=== PATIENT | male | born 1985 | race Caucasian/White ===

== ENCOUNTER 2024-03-22 10:48 | Emergency (ER) | payer SELFPAY ==
[2024-03-22 11:36] VITALS: BP 138/85; PULSE 79; RESP 14; TEMP 36.6; O2SAT 97; BMI 23.7
--- NOTE | 2024-03-22 12:05 | ED.SKABFB ---
HPI - Skin/Abscess/Foreign Bdy <HESHAM Isaac - Last Filed: 03/22/24 12:25> General Chief complaint: Skin/Abscess/Foreign Body Stated complaint: poss spider bite R arm Time Seen by Provider: 03/22/24 12:05 Source: patient Mode of arrival: Ambulatory Limitations: no limitations History of Present Illness HPI narrative: 38-year-old male, daily smoker, presents to the emergency department with complaints of a bug bite to his right forearm that occurred 2 days ago. [facility] [place] [facility] [place] and [place] been [place] a [place]. Patient reports getting lots of pus out of his arm along with chills and body aches. Patient denies seeing any ticks attached to his body. Related Data Previous Rx's Medication Instructions Recorded cephalexin 500 mg capsule 1,000 mg (2 x 500 mg) PO BID 03/22/24 Cellulitis 10 days #40 caps Allergies Allergy/AdvReac Type Severity Reaction Status Date / Time No Known Drug Allergies Allergy Verified 03/22/24 12:22 Review of Systems <HESHAM Isaac - Last Filed: 03/22/24 12:25> Review of Systems Narrative: Narrative: See HPI. GENERAL: Denies chills, fatigue, fever, sweats. HEENT: Denies sinus pain, ear pain, sore throat, difficulty swallowing, dizziness. RESPIRATORY: Denies dyspnea, cough, wheezing, sputum. CARDIOVASCULAR: Denies chest pain, palpitations, edema. GASTROINTESTINAL: Denies nausea, vomiting, abdominal pain, diarrhea, constipation. : Denies dysuria, frequency, incontinence, hematuria, urinary retention, flank pain. MSK: Denies weakness, joint pain, or bony pain. SKIN: Denies rash or pruritis. Endorses lesion to right forearm. NEUROLOGIC: Denies weakness, dizziness, headache, numbness, confusion. PSYCHIATRIC: No concerning psychosocial issues. Patient History <HESHAM Isaac - Last Filed: 03/22/24 12:25> Social History Smoking Status: Current every day smoker Smoking Status: Current every day smoker alcohol intake frequency: a few times a week Exam <HESHAM Isaac - Last Filed: 03/22/24 12:25> Narrative Exam Narrative: Exam Narrative: GENERAL: This is a well-nourished, well-developed patient, in no acute distress. HEAD: Atraumatic. Normocephalic. EYES: Pupils equal round and reactive. Extraocular motions intact. No scleral icterus, injection or drainage. ENT: Nose without bleeding, purulent drainage. Throat without erythema, tonsillar hypertrophy or exudate. Uvula midline. Airway patent. TMs and canals clear. No sinus tenderness. NECK: Trachea midline. No JVD or lymphadenopathy. Nontender. CARDIOVASCULAR: Regular rate and rhythm without murmurs, peripheral pulses intact, cap refill <2 sec. RESPIRATORY: Breath sounds equal and clear bilaterally. No wheezes, rales, or rhonchi. No cough. No increased respiratory effort. No accessory muscle use. GASTROINTESTINAL: Abdomen soft, non-tender, nondistended without guarding or rebound. No suprapubic pain. MSK: Moves all extremities. Normal range of motion, no clubbing or edema. Neurovascularly intact. NEURO: A&O x 3. SKIN: Warm, dry, no rashes noted. 1 cm erythematous lesion on right forearm consistent with a bug bite. Not consistent with erythema migrans. Initial Vital Signs Initial Vital Signs: Vital Signs Temperature 97.9 F 03/22/24 11:36 Pulse Rate 79 03/22/24 11:36 Respiratory Rate 14 03/22/24 11:36 Blood Pressure 138/85 03/22/24 11:36 Pulse Oximetry 97 03/22/24 11:36 Oxygen Delivery Method Room Air 03/22/24 11:36 Reviewed <Claire Gar DO - Last Filed: 03/31/24 07:49> Initial Vital Signs Initial Vital Signs: Vital Signs Temperature 97.9 F 03/22/24 11:36 Pulse Rate 79 03/22/24 11:36 Respiratory Rate 14 03/22/24 11:36 Blood Pressure 138/85 03/22/24 11:36 Pulse Oximetry 97 03/22/24 11:36 Oxygen Delivery Method Room Air 03/22/24 11:36 Course <HESHAM Isaac - Last Filed: 03/22/24 12:25> Vital Signs Vital signs: Vital Signs - 8 hr 03/22/24 11:36 Temperature 97.9 F Pulse Rate 79 Respiratory Rate 14 Blood Pressure 138/85 Pulse Oximetry 97 Oxygen Delivery Method Room Air <Claire Gar DO - Last Filed: 03/31/24 07:49> Vital Signs Vital signs: Vital Signs - 8 hr 03/22/24 11:36 Temperature 97.9 F Pulse Rate 79 Respiratory Rate 14 Blood Pressure 138/85 Pulse Oximetry 97 Oxygen Delivery Method Room Air MDM - Skin/Abscess/Foreign Bdy <HESHAM Isaac - Last Filed: 03/22/24 12:25> Differential Diagnosis Differential diagnosis: Likely abscess of skin or subcutaneous tissue and insect bites MDM Narrative Medical decision making narrative: 38-year-old male with suspected bug bite to right forearm. Assessment was encouraging and wound appears to be from a bug bite and not erythema migrans. Will begin patient on antibiotic therapy and recommend warm compresses 2 to 3 times a day to facilitate drainage. Discussed plan of care and return precautions with patient, who verbalized understanding and was agreeable with course of action. Discussed worsening symptoms that would necessitate a return visit to the emergency department. Otherwise, patient will follow up with family doctor or walk-in clinic as needed. Discharge Plan Departure Patient Disposition: Home Clinical Impression: Insect bites Qualifiers: Encounter type: initial encounter Site of insect bite: forearm Laterality: right Qualified Code(s): S50.861A - Insect bite (nonvenomous) of right forearm, initial encounter Cellulitis Qualifiers: Site of cellulitis: extremity Site of cellulitis of extremity: upper extremity Laterality: right Qualified Code(s): L03.113 - Cellulitis of right upper limb Instructions: DI for Cellulitis -- Adult, DI for Wound Infection Activity Restrictions/Additional Instructions: *You have been diagnosed with cellulitis secondary to a bug bite. We will treat this with an antibiotic for 10 days. Please take as prescribed intake the entire amount of medication. For worsening symptoms that includes increased bright redness, increase in yellow discharge or intolerable pain, please return to the emergency department immediately. Otherwise, please follow-up with your family doctor walk-in clinic as needed. *What to do: *Please continue to take your regular medications as directed. [ x] New medication prescriptions sent to your pharmacy: [[facility]] [ ] New medication written as a paper prescription [ ] No new medications given *Please follow up with your primary care provider in 2-3 days, call for an appointment. Let them know you were seen in the Emergency Department and that we ask that you be seen in follow up. We will electronically transmit a record of today's note if your PCP is in our system *If you do not have a primary care provider please contact the [facility] Resource line at [phone]. They will ask some questions about your medical history and help get you set up with a doctor in the community. ? Return to ER if you should have any new, worsening or concerning symptoms, such as worsening pain, severe headache, confusion, chest pain, difficulty breathing, fever greater than 101 F, shaking chills, persistent vomiting to the point that you cannot drink fluids, or other new or worsening symptoms. Prescriptions: New cephalexin 500 mg capsule 1,000 mg PO BID 10 Days Qty: 40 0RF Stand Alone Forms: Patient Portal/API ED Sign-out <Claire Gar, - Last Filed: 03/31/24 07:49> Cosign ED Attending Brooksature Attestation: I was available for consultation.
== END 2024-03-22 12:35 | disposition home or self-care (01) ==
PROVIDERS: Emergency Provider Registered Nurse
DX: S50.861A Insect bite (nonvenomous) of right forearm, initial encounter (principal); L03.113 Cellulitis of right upper limb; W57.XXXA Bitten or stung by nonvenomous insect and other nonvenomous arthropods, initial encounter
CPT/HCPCS: 99281; 99283

== ENCOUNTER 2024-05-05 18:37 | Emergency (ER) | payer SELFPAY ==
[2024-05-05 18:42] VITALS: BP 121/82; PULSE 85; RESP 18; TEMP 36.4; O2SAT 98; BMI 22.4
--- NOTE | 2024-05-05 18:47 | DI.RAD.S_ITS ---
PROCEDURE: XR FOOT LT MIN 3V INDICATIONS: foot caught between golf cart and curb TECHNIQUE: 3 views of the foot were acquired. COMPARISON: None. FINDINGS: Bones: Intra-articular fracture at the base of the 1st distal phalanx. Plantar calcaneal enthesophyte. Soft tissues: Small tibiotalar joint effusion. Achilles tendon appears normal. IMPRESSION: Intra-articular fracture at the base of the 1st distal phalanx. Dictated by: Christopher Littlejohn M.D. on 05/05/2024 at 19:28 Approved by: Christopher Littlejohn M.D. on 05/05/2024 at 19:28
--- NOTE | 2024-05-05 18:47 | DI.RAD.S_ITS ---
PROCEDURE: XR ANKLE LT MIN 3V INDICATIONS: foot caught between golf cart and curb TECHNIQUE: 3 views of the ankle were acquired. COMPARISON: None. FINDINGS: Bones: No fractures or dislocations. Ankle mortise is normally aligned. No suspicious bony lesions. Soft tissues: Small tibiotalar joint effusion. Achilles tendon appears normal. IMPRESSION: No acute bony abnormality or significant effusion. Dictated by: Christopher Littlejohn M.D. on 05/05/2024 at 19:27 Approved by: Christopher Littlejohn M.D. on 05/05/2024 at 19:27
--- NOTE | 2024-05-05 20:51 | ED.LOWEXIN ---
HPI - Extremity Injury (Lower) General Chief Complaint: Extremity Injury, Lower Stated Complaint: twisted lt foot poss broken Time Seen by Provider: 05/05/24 20:44 Source: patient Mode of arrival: Wheelchair History of Present Illness HPI Narrative: 38-year-old male presents with right toe/foot pain and swelling. Had his foot out of the golf car and it got caught between curb and the cart. Reports pain and throbbing particularly in the right great toe. Related Data Allergies Allergy/AdvReac Type Severity Reaction Status Date / Time No Known Drug Allergies Allergy Verified 05/05/24 18:42 Patient History Social History Smoking Status: Current every day smoker Smoking Status: Current every day smoker alcohol intake frequency: a few times a week Exam Initial Vital Signs Initial Vital Signs: Vital Signs Temperature 97.5 F L 05/05/24 18:42 Pulse Rate 85 05/05/24 18:42 Respiratory Rate 18 05/05/24 18:42 Blood Pressure 121/82 05/05/24 18:42 Pulse Oximetry 98 05/05/24 18:42 Oxygen Delivery Method Room Air 05/05/24 18:42 Const: Awake, alert, uncomfortable, nontoxic appearing MSK: No deformity, full range of motion, pulses equal Skin: Warm, Dry, intact, subungual hematoma right great toe Neuro: AO x3, CN II-XII grossly intact, moves all extremities Procedures Nail Trephination Location (toes): first digit Sterile prep: betadine Method of drainage: nail cautery Procedure successful: Yes Patient tolerated procedure: well and no complications Course Orders Ordered: Discontinued Medications Hydrocodone Bitart/Acetaminophen (Hydrocodone/Acet 5/325 Tablet) 2 tab PO NOW ONE Stop: 05/05/24 20:52 Last Admin: 05/05/24 20:56 Dose: 2 tab Documented By: BRE Hydrocodone Bitart/Acetaminophen (Hydrocodone/Acet 5/325 Prepack) 1 bottle MISC DIRECTED ONE Stop: 05/05/24 21:25 Last Admin: 05/05/24 21:36 Dose: 1 bottle Documented By: BRE Vital Signs Vital signs: Vital Signs - 8 hr 05/05/24 18:42 Temperature 97.5 F L Pulse Rate 85 Respiratory Rate 18 Blood Pressure 121/82 Pulse Oximetry 98 Oxygen Delivery Method Room Air MDM - Extremity Injury (Lower) Imaging Data Extremity x-ray #1: Radiologist's Impression: PROCEDURE: XR FOOT LT MIN 3V INDICATIONS: foot caught between golf cart and curb TECHNIQUE: 3 views of the foot were acquired. COMPARISON: None. FINDINGS: Bones: Intra-articular fracture at the base of the 1st distal phalanx. Plantar calcaneal enthesophyte. Soft tissues: Small tibiotalar joint effusion. Achilles tendon appears normal. IMPRESSION: Intra-articular fracture at the base of the 1st distal phalanx. Dictated by: Christopher Littlejhon M.D. on 05/05/2024 at 19:28 Approved by: Christopher Littlejohn M.D. on 05/05/2024 at 19:28 [facility] Narrative Medical decision making narrative: Proximal phalangeal fx on XR. Great toe with subungual hematoma. Nail trephination removed majority of blood under nail with improvement in pain. Toe cuong taped, given hard soled shoe. Discharge Plan Departure Patient Disposition: Home Clinical Impression: Fracture of toe, Subungual hematoma Instructions: DI for Toe Fracture Activity Restrictions/Additional Instructions: You have a fracture at the base of your right great toe. Wear the cuong tape for the next several weeks for support of the toe. Wear a hard-soled shoe when walking. You may use the crutches as needed for support when walking. Tylenol and ibuprofen are mainstays of treatment for this fracture. A very short supply of Nicasio has been sent that may help with your pain as well. Be careful when taking this medication as it may cause drowsiness. Do not take it with alcohol or before driving. Stand Alone Forms: Patient Portal/API
[2024-05-05] MEDS: HYDROCODONE/ACET 5/325 TABLET 2 TAB PO (20:56)
[2024-05-05] MEDS: HYDROCODONE/ACET 5/325 PREPACK 1 BOTTLE MISC (21:36)
== END 2024-05-05 21:44 | disposition home or self-care (01) ==
PROVIDERS: Emergency Provider Emergency Medicine
DX: S92.412A Displaced fracture of proximal phalanx of left great toe, initial encounter for closed fracture (principal); W23.0XXA Caught, crushed, jammed, or pinched between moving objects, initial encounter
CPT/HCPCS: 11740; 73610; 73630; 99283